=== PATIENT | female | born 1960 | race Caucasian/White ===

== ENCOUNTER 2017-01-22 08:27 | Day surgery (SDC) | payer OTHER ==
[2017-01-22] MEDS ORDERED: NS 500 ML IV 500 ML IV ONE (08:32)
[2017-01-22] MEDS ORDERED: TETRACAINE 0.5% OPHTH 1 DOSE AFFEYE ONE ×2 (08:45→11:51)
[2017-01-22] MEDS ORDERED: VIGAMOX 0.5% OPHTH 1 DOSE AFFEYE ONE ×5 (08:50→12:11)
[2017-01-22] MEDS ORDERED: PROLENSA OPHTH 1 DOSE AFFEYE ONE (09:01)
[2017-01-22] MEDS ORDERED: ALPHAGAN-P OPHTH 1 DOSE AFFEYE ONE (09:02)
[2017-01-22] MEDS ORDERED: CYCLOGYL 1% OPHTH 1 DOSE OP ONE ×3 (09:03→09:05)
[2017-01-22] MEDS ORDERED: AK-DILATE 2.5% OPHTH 1 DOSE OP ONE ×4 (09:03→09:05)
[2017-01-22] MEDS ORDERED: MYDRIACIL OPHTH 1 DOSE AFFEYE ONE ×3 (09:03→09:05)
[2017-01-22] MEDS ORDERED: BETADINE OPHTH SOLN 5% EACHEYE ONE (11:51)
[2017-01-22] MEDS ORDERED: XYLOCAINE-MPF 1% IJ ONE ×2 (11:53→12:02)
[2017-01-22] MEDS ORDERED: ADRENALINE CHL INJ IJ ONE ×2 (11:53→12:02)
[2017-01-22] MEDS ORDERED: DUOVISC IO ONE ×2 (11:53→12:02)
[2017-01-22] MEDS ORDERED: BSS OPHTH (PLAIN) 500 ML with VANCOMYCIN HCL 500 MG VIAL 25 MG, ADRENALINE CHL INJ 1 MG IR ONE ×6 (11:54)
[2017-01-22] MEDS ORDERED: DIPRIVAN VIAL ONE (13:38)
[2017-01-22 17:56] VITALS: BP 158/84
== END 2017-01-22 12:40 | disposition home or self-care (01) ==
LOC: SURG1 08:27
PROVIDERS: ATTEND Ophthalmology
PROC: 08RK3JZ Replacement of Left Lens with Synthetic Substitute, Percutaneous Approach (ICD-10-PCS; principal; 2017-01-22 14:30)
PROC: 08DK3ZZ Extraction of Left Lens, Percutaneous Approach (ICD-10-PCS; principal; 2017-01-22 14:30)
DX: H25.12 Age-related nuclear cataract, left eye (principal); H25.012 Cortical age-related cataract, left eye
CPT/HCPCS: A4217; J0170; J3370; J3490

== ENCOUNTER 2017-02-12 07:42 | Day surgery (SDC) | payer OTHER ==
[2017-02-12] MEDS ORDERED: NS 500 ML IV 500 ML IV ONE (07:57)
[2017-02-12] MEDS ORDERED: TETRACAINE 0.5% OPHTH 1 DOSE AFFEYE ONE ×2 (08:00→09:51)
[2017-02-12] MEDS ORDERED: VIGAMOX 0.5% OPHTH 1 DOSE AFFEYE ONE ×5 (08:05→10:14)
[2017-02-12] MEDS ORDERED: PROLENSA OPHTH 1 DOSE AFFEYE ONE (08:16)
[2017-02-12] MEDS ORDERED: [UNRECOGNIZED DRUG - OTHER] AFFEYE ONE (08:17)
[2017-02-12] MEDS ORDERED: MYDRIACIL OPHTH 1 DOSE AFFEYE ONE ×3 (08:18→08:20)
[2017-02-12] MEDS ORDERED: AK-DILATE 2.5% OPHTH 1 DOSE OP ONE ×3 (08:18→08:20)
[2017-02-12] MEDS ORDERED: CYCLOGYL 1% OPHTH 1 DOSE OP ONE ×3 (08:18→08:20)
[2017-02-12] MEDS ORDERED: BETADINE OPHTH SOLN 5% EACHEYE ONE (09:51)
[2017-02-12] MEDS ORDERED: XYLOCAINE-MPF 1% IJ ONE ×2 (09:57→10:05)
[2017-02-12] MEDS ORDERED: DUOVISC IO ONE ×2 (09:57→10:05)
[2017-02-12] MEDS ORDERED: BSS OPHTH (PLAIN) 500 ML with VANCOMYCIN HCL 500 MG VIAL 25 MG, ADRENALINE CHL INJ 1 MG IR ONE ×6 (09:57)
[2017-02-12] MEDS ORDERED: ADRENALINE CHL INJ IJ ONE ×2 (09:57→10:05)
[2017-02-12 10:45] VITALS: BP 152/90
== END 2017-02-12 10:45 | disposition home or self-care (01) ==
LOC: SURG1 07:42
PROVIDERS: ATTEND Ophthalmology
PROC: 08DJ3ZZ Extraction of Right Lens, Percutaneous Approach (ICD-10-PCS; principal; 2017-02-12 09:00)
PROC: 08RJ3JZ Replacement of Right Lens with Synthetic Substitute, Percutaneous Approach (ICD-10-PCS; principal; 2017-02-12 09:00)
DX: H25.11 Age-related nuclear cataract, right eye (principal); H25.011 Cortical age-related cataract, right eye
CPT/HCPCS: A4217; J0170; J3370